=== PATIENT | female | born 1975 | race American Indian/Alaskan Native ===

== ENCOUNTER 2016-10-22 21:06 | Emergency (ER) | payer SELFPAY ==
[2016-10-22 21:49] VITALS: BP 145/92
--- NOTE | 2016-10-22 22:40 | XRay Report ---
FINAL REPORT EXAM: XR NASAL BONE 3 HISTORY: INJURY TO NOSE COMPARISON: None available. FINDINGS: Three views of the nasal bones obtained. Nasal bones are grossly intact. No displaced fracture. IMPRESSION: Nasal bones are grossly intact.
--- NOTE | 2016-10-22 23:12 | Emergency Department Report ---
ED General Adult HPI - General Chief complaint: Head Injury Stated complaint: NOSE INJURY Time Seen by Provider: 10/22/16 22:59 Source: patient Mode of arrival: Ambulatory Limitations: No Limitations - History of Present Illness Initial comments: Patient comes in the ER today with complaints of nose pain after hitting her nose on the counter while cooking yesterday. Patient states that she is coming up and accidentally hit her nose on the counter. Patient denies any bloody nose. Patient denies any loss of consciousness, vision changes, loose teeth. Patient primarily came in today She wanted to make sure it was not broken. - Related Data Allergies Allergy/AdvReac Type Severity Reaction Status Date / Time shellfish derived Allergy Unknown Verified 10/22/16 21:42 ED Review of Systems ROS: Stated complaint: NOSE INJURY Other details as noted in HPI Constitutional: denies: chills, fever Eyes: denies: eye pain, eye discharge, vision change ENT: other (nose pain). denies: ear pain, throat pain, dental pain, epistaxis Respiratory: denies: cough, shortness of breath, wheezing Cardiovascular: denies: chest pain, palpitations Endocrine: no symptoms reported Gastrointestinal: denies: abdominal pain, nausea, diarrhea Genitourinary: denies: urgency, dysuria, discharge Musculoskeletal: denies: back pain, joint swelling, arthralgia Skin: denies: rash, lesions Neurological: denies: headache, weakness, paresthesias Psychiatric: denies: anxiety, depression Hematological/Lymphatic: denies: easy bleeding, easy bruising ED Past Medical Hx - Past Medical History Previous Medical History?: No - Surgical History Past Surgical History?: No - Social History Smoking Status: Never Smoker Substance Use Type: None ED Physical Exam - General Limitations: No Limitations General appearance: alert, in no apparent distress - Head Head exam: Present: normocephalic, other (tender nasal bridge) - Eye Eye exam: Present: normal appearance, PERRL, EOMI. Absent: periorbital swelling , periorbital tenderness Pupils: Present: normal accommodation - ENT ENT exam: Present: normal orophraynx, mucous membranes moist, TM's normal bilaterally, normal external ear exam, other (tender nasal bridge with minimal swelling. No ecchymosis or bleeding noted. Bilateral nares are patent without any internal bleeding.) - Neck Neck exam: Present: normal inspection - Respiratory Respiratory exam: Present: normal lung sounds bilaterally. Absent: respiratory distress - Cardiovascular Cardiovascular Exam: Present: regular rate, normal rhythm. Absent: systolic murmur, diastolic murmur, rubs, gallop - GI/Abdominal GI/Abdominal exam: Present: soft, normal bowel sounds - Extremities Exam Extremities exam: Present: normal inspection - Back Exam Back exam: Present: normal inspection - Neurological Exam Neurological exam: Present: alert, oriented X3 - Psychiatric Psychiatric exam: Present: normal affect, normal mood - Skin Skin exam: Present: warm, dry, intact, normal color. Absent: rash ED Course Vital Signs 10/22/16 21:43 Temperature 99.2 F Pulse Rate 79 Respiratory 18 Rate Blood Pressure 145/92 O2 Sat by Pulse 100 Oximetry ED Medical Decision Making - Radiology Data Radiology results: report reviewed Nasal bone x-rays reveal no fracture - Medical Decision Making Patient is nontoxic and hemodynamically stable. X-ray results reviewed and discussed the patient in room. I offered patient pain medication for symptomatic relief and she refused as she has a lot of kids and does not want to be sedated. Patient is to follow-up with her primary care doctor as needed. Patient is in agreement with treatment plan impression stable for discharge. Critical care attestation.: If time is entered above; I have spent that time in minutes in the direct care of this critically ill patient, excluding procedure time. ED Disposition Clinical Impression: Contusion of nose Disposition: DC-01 TO HOME OR SELFCARE Is pt being admited?: No Does the pt Need Aspirin: No Condition: Good Instructions: Contusion in Adults (ED) Referrals: PRIMARY CARE, [Primary Care Provider] - 3-5 Days Time of Disposition: 23:12
== END 2016-10-22 23:16 | disposition home or self-care (01) ==
LOC: ED 21:06
DX: S00.33XA Contusion of nose, initial encounter (principal); Z91.013 Allergy to seafood; W22.03XA Walked into furniture, initial encounter; Y93.89 Activity, other specified; Y92.89 Other specified places as the place of occurrence of the external cause; Y99.8 Other external cause status
CPT/HCPCS: 70160; 99283

== ENCOUNTER 2019-01-15 05:12 | Emergency (ER) | payer SELFPAY ==
[2019-01-15 05:21] VITALS: BP 132/95
[2019-01-15] MEDS ORDERED: DECADRON IM ONE (07:58)
[2019-01-15] MEDS ORDERED: PEPCID PO ONE (07:58)
--- NOTE | 2019-01-15 07:58 | Emergency Department Report ---
HPI - General Chief Complaint: Allergic Reaction Time Seen by Provider: 01/15/19 07:55 - HPI HPI: 43 yo with several hour history of itchy rash. ? allergen. She was at work when this started - she thinks she sat on a dirty chair. no new food or contact with other potential allergen. vss abc intact no sob or cp no wheezing talking in full sentences Took benadryl prior to arrival ED Past Medical Hx - Past Medical History Previous Medical History?: No - Surgical History Past Surgical History?: No - Family History Family history: no significant - Social History Smoking Status: Never Smoker - Medications Home Medications: Home Medications Medication Instructions Recorded Confirmed Last Taken Type Cetirizine HCl [ZyrTEC] 10 mg PO DAILY #30 capsule 01/15/19 Unknown Rx diphenhydrAMINE [Benadryl CAP] 25 mg PO Q8HR PRN #20 capsule 01/15/19 Unknown Rx predniSONE [Deltasone] 20 mg PO DAILY #5 tablet 01/15/19 Unknown Rx ED Review of Systems ROS: Stated complaint: ALLERGIC REACTION Other details as noted in HPI Comment: All other systems reviewed and negative Physical Exam - Physical Exam Vital Signs: Vital Signs 01/15/19 05:20 Temperature 97.0 F L Pulse Rate 64 Respiratory 18 Rate Blood Pressure 132/95 O2 Sat by Pulse 100 Oximetry Physical Exam: abc intact vss urticarial rash- elevated, red and blotchy, generalized distribution itching s1 s2 lungs cta abd snt ambulatory ED Course Vital Signs 01/15/19 05:20 Temperature 97.0 F L Pulse Rate 64 Respiratory 18 Rate Blood Pressure 132/95 O2 Sat by Pulse 100 Oximetry ED Medical Decision Making - Medical Decision Making urticarial rash ? etio no hx of took benadryl at home given pepcid and decadron here educated on derm follow up for patch testing repeat sat 100 on room air taking po in no distress dc home with her family and dc plan of care. Vital Signs 01/15/19 05:20 Temperature 97.0 F L Pulse Rate 64 Respiratory 18 Rate Blood Pressure 132/95 O2 Sat by Pulse 100 Oximetry - Differential Diagnosis allergic reaction Critical care attestation.: If time is entered above; I have spent that time in minutes in the direct care of this critically ill patient, excluding procedure time. ED Disposition Clinical Impression: Urticarial rash Disposition: DC-01 TO HOME OR SELFCARE Is pt being admited?: No Does the pt Need Aspirin: No Condition: Stable Instructions: Urticaria (ED) Additional Instructions: meds as ordered follow up with derm MD for testing if persists eliminate potential allergens like new soap/detergent etc. Referrals: ALFRED COOPER MD [Referring] - 3-5 Days AMILCAR WILDER MD [Staff Physician] - 3-5 Days Forms: Work/School Release Form(ED) Time of Disposition: 08:24
== END 2019-01-15 08:41 | disposition home or self-care (01) ==
LOC: ED 05:12
DX: L50.9 Urticaria, unspecified (principal); Z79.899 Other long term (current) drug therapy; Z91.013 Allergy to seafood
CPT/HCPCS: 96372; 99282; J1100